=== PATIENT | female | born 1945 | race Caucasian/White ===

== ENCOUNTER 2022-12-31 16:21 | Outpatient (RCR) | payer MEDICARE, BC | END 2023-01-30 | disposition home or self-care (01) | LOC: PT | DX: Z86.73 Personal history of transient ischemic attack (TIA), and cerebral infarction without residual deficits (principal) ==

== ENCOUNTER 2023-01-31 08:00 | Outpatient (RCR) | payer MEDICARE, BC | END 2023-03-01 | disposition home or self-care (01) | LOC: PT | DX: Z86.73 Personal history of transient ischemic attack (TIA), and cerebral infarction without residual deficits (principal) ==

== ENCOUNTER 2023-04-02 08:00 | Outpatient (RCR) | payer MEDICARE, BC | END 2023-05-01 | disposition home or self-care (01) | LOC: PT | DX: Z86.73 Personal history of transient ischemic attack (TIA), and cerebral infarction without residual deficits (principal) ==

== ENCOUNTER → 2023-08-20 | Outpatient (CLI) | payer MEDICARE, BC ==
[2023-08-20 15:04] LABS: ALBUMIN 4.1 g/dL (3.4-4.8)
[2023-08-20 15:06] LABS: CALCIUM 9.6 mg/dL (8.3-10.5)
[2023-08-20 15:07] LABS: TOTAL PROTEIN 6.6 g/dL (6.2-8.1)
[2023-08-20 15:09] LABS: TOTAL BILIRUBIN 0.7 mg/dL (0.2-1.2)
== END ==
LOC: LAB 14:34
PROVIDERS: Nurse Practitioner
DX: Z00.00 Encounter for general adult medical examination without abnormal findings (principal); E03.9 Hypothyroidism, unspecified; Z86.2 Personal history of diseases of the blood and blood-forming organs and certain disorders involving the immune mechanism

== ENCOUNTER → 2023-09-02 | Outpatient (CLI) | payer MEDICARE, BC ==
[~2023-09-02] MED LIST: Gadoterate 20 ML VIAL IV ONE
== END ==
LOC: RAD 09:31
DX: Z13.820 Encounter for screening for osteoporosis (principal); Z86.73 Personal history of transient ischemic attack (TIA), and cerebral infarction without residual deficits
CPT/HCPCS: A9575

== ENCOUNTER → 2024-01-29 | Outpatient (CLI) | payer MEDICARE, BC | LOC: LAB 11:22 | DX: E55.9 Vitamin D deficiency, unspecified (principal) ==

== ENCOUNTER → 2024-08-23 | Outpatient (CLI) | payer MEDICARE, BC ==
[2024-08-23 15:25] LABS: BASO # 0.03 K/mm3 (0.02-0.10); EOS # 0.26 K/mm3 (0.04-0.40); EOS % 4.5 % (1.0-5.0); HEMATOCRIT 34.2 % (37.0-47.0); HEMOGLOBIN 11.1 g/dL (12.5-16.0); LYMPH# 1.74 K/mm3 (1.50-4.00); MEAN CELL VOLUME 92 fl (78-100); MEAN CORPUSCULAR HEMOGLOBIN 30 pg (27-31); MEAN CORPUSCULAR HGB CONC 33 g/dL (33-37); MEAN PLATELET VOLUME 8.9 fl (7.4-10.4); MONO # 0.53 K/mm3 (0.20-0.80); NEU # 3.17 K/mm3 (1.40-6.50); PLATELET COUNT 248 K/mm3 (130-400); RED BLOOD COUNT 3.73 M/mm3 (4.10-5.30); RED CELL DISTRIBUTION WIDTH 13.4 % (11.5-14.5); WHITE BLOOD COUNT 5.7 K/mm3 (4.8-10.8)
[2024-08-23 15:26] LABS: ALBUMIN 4.1 g/dL (3.4-4.8)
[2024-08-23 15:27] LABS: CALCIUM 9.5 mg/dL (8.3-10.5)
[2024-08-23 15:30] LABS: TOTAL BILIRUBIN 0.7 mg/dL (0.2-1.2)
== END ==
LOC: LAB 15:07
PROVIDERS: Family Medicine
DX: E03.9 Hypothyroidism, unspecified (principal); E55.9 Vitamin D deficiency, unspecified; I10 Essential (primary) hypertension